=== PATIENT | female | born 1960 | race Caucasian/White ===

== ENCOUNTER → 2016-04-25 | Outpatient (CLI) | payer MEDICAID ==
[~2016-04-25] MED LIST: AMBIEN10 MG PO; ASPIRIN LO-DOSE81 MG PO; CALCIUM CARBON600 MG PO; CIPRO250 MG PO; CITRUS CALCIUM1 EACH PO; COLCRYS0.6 MG PO; DELTASONE5 MG PO; DIPHENOXYLATE-1 EACH PO; FEOSOL325 MG PO; FIBER LAXATIVE625 MG PO; HUMALOG MI100 UNIT/5 SUB-Q; KCL - MICRO-K10 MEQ PO; LANTUS (IN100 UNIT/M SUB-Q; LASIX40 MG OP; LASIX40 MG PO; MULTI VITAMIN1 EACH PO; NEURONTIN100 MG PO; NORCO 5-325 MG1 TAB PO; NORCO 5-325 TA1 EACH PO; PERI-COLACE TA1 EACH PO; PRAVACHOL40 MG PO; PRILOSEC20 MG PO; SANDIMMUNE100 MG PO; SERTRALINE HCL100 MG PO; SODIUM BICARBO650 MG PO; VASOTEC10 MG PO; ZYLOPRIM300 MG PO
== END | disposition disaster alternative care site (69) ==
LOC: LGSMG 14:29
DX: Z00.00 Encounter for general adult medical examination without abnormal findings (principal); I12.9 Hypertensive chronic kidney disease with stage 1 through stage 4 chronic kidney disease, or unspecified chronic kidney disease; N18.4 Chronic kidney disease, stage 4 (severe); E11.9 Type 2 diabetes mellitus without complications; M10.9 Gout, unspecified; E78.5 Hyperlipidemia, unspecified; E21.3 Hyperparathyroidism, unspecified; D50.9 Iron deficiency anemia, unspecified; R80.9 Proteinuria, unspecified; Z79.899 Other long term (current) drug therapy

== ENCOUNTER → 2016-07-27 | Outpatient (CLI) | payer MEDICAID | LOC: LGSMG 12:57 | DX: Z00.00 Encounter for general adult medical examination without abnormal findings (principal); I12.9 Hypertensive chronic kidney disease with stage 1 through stage 4 chronic kidney disease, or unspecified chronic kidney disease; E11.22 Type 2 diabetes mellitus with diabetic chronic kidney disease; N18.4 Chronic kidney disease, stage 4 (severe); Z79.899 Other long term (current) drug therapy; M10.9 Gout, unspecified; E78.5 Hyperlipidemia, unspecified; E21.3 Hyperparathyroidism, unspecified; E83.39 Other disorders of phosphorus metabolism; E87.6 Hypokalemia; D50.9 Iron deficiency anemia, unspecified; Z94.0 Kidney transplant status ==